=== PATIENT | female | born 1935 | race Caucasian/White ===

== ENCOUNTER 2018-12-24 20:46 | Inpatient (IN) | payer OTHER ==
[~2018-12-24] VITALS: Ht 167.6 cm; Wt 66.4 kg
[2018-12-26 14:09] VITALS: BP 138/68
== END 2018-12-26 15:00 | disposition home or self-care (01) | DRG 68 ==
LOC: ED 21:35 → EDIP 23:45 → 4EST 12-25 00:34 → DCLOUNGE 12-26 14:40
PROVIDERS: ADMIT Internal Medicine; ATTEND Internal Medicine
PROC: B3151ZZ Fluoroscopy of Bilateral Common Carotid Arteries using Low Osmolar Contrast (ICD-10-PCS; principal; 2018-12-24)
PROC: B31G1ZZ Fluoroscopy of Bilateral Vertebral Arteries using Low Osmolar Contrast (ICD-10-PCS; 2018-12-24)
PROC: B3181ZZ Fluoroscopy of Bilateral Internal Carotid Arteries using Low Osmolar Contrast (ICD-10-PCS; 2018-12-24)
PROC: B31C1ZZ Fluoroscopy of Bilateral External Carotid Arteries using Low Osmolar Contrast (ICD-10-PCS; 2018-12-24)
DX: I65.02 Occlusion and stenosis of left vertebral artery (principal); I16.0 Hypertensive urgency; E78.5 Hyperlipidemia, unspecified; F02.80 Dementia in other diseases classified elsewhere, unspecified severity, without behavioral disturbance, psychotic disturbance, mood disturbance, and anxiety; G30.1 Alzheimer's disease with late onset; I10 Essential (primary) hypertension; I35.8 Other nonrheumatic aortic valve disorders; R55 Syncope and collapse; I65.23 Occlusion and stenosis of bilateral carotid arteries; Z86.73 Personal history of transient ischemic attack (TIA), and cerebral infarction without residual deficits; Z90.49 Acquired absence of other specified parts of digestive tract
CPT/HCPCS: 36415; 70450; 70496; 70498; 70551; 71045; 80048; 80053; 80061; 82040; 84443; 84484; 85025; 85610; 93005; 93306; 93975; 96374; 99285; G0378; Q9967; 92522-GN; G0515-GN; J0360